=== PATIENT | female | born 1985 | race Caucasian/White ===

== ENCOUNTER 2016-08-18 12:10 | Emergency (ER) | payer OTHER ==
[2016-08-18] MEDS ORDERED: ONDANSETRON 4 MG ORAL DISINTEGRATING TAB (S0181) As Ordered ONE (13:03)
--- NOTE | 2016-08-18 13:15 | EDDOCDS ---
Nurse's Notes [facility] Name: Fermin Barnes Age: 31 yrs Sex: Female : 1985 Arrival Date: 08/18/2016 Time: 12:10 Bed Triage Treatment Room [facility] Diagnosis: Nausea and vomiting;Diarrhea, unspecified;Viral infection, unspecified Presentation: 08/18 12:12 Presenting complaint: Patient states: Was seen at [facility] for bronchitis rs3 yesterday, given fluticasone sprary, benzonatate, and benadryl. Vomiting/diarrhea since last night. Adult Sepsis Screening: The patient does not have new or worsening altered mentation. Patient's respiratory rate is less than 22. Systolic blood pressure is greater than 100. Patient has a qSOFA score of 0- Negative Sepsis Screen. Suicide/Homicide risk assessment- the patient denies having any suicidal and/or homicidal ideations and does not present with any other emotional, behavioral or mental health complaints. 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 Transition of care: patient was not received from another setting of care. 12:12 Acuity: BEV Level 4 rs3 12:12 Method Of Arrival: Walkin/Carried/Asstd rs3 Triage Assessment: 12:17 General: Appears in no apparent distress. Pain: Location: right hip. 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 fluticasone 50 mcg/actuation nasal spsn 2 times per day 2. methylprednisolone 4 mg Oral tab once daily 3. meloxicam 15 mg oral tab once daily 4. benzonatate 100 mg oral cap 1 cap 5. Benadryl 25 mg Oral cap as needed 6. albuterol sulfate 90 mcg/actuation Inhl aepb as needed - PMHx: Hip injury; - PSHx: none; - Social history: Smoking status: Patient states was never smoker of tobacco. No barriers to communication noted, The patient speaks fluent Citizen [place]. - Family history: Not pertinent. - : The pt / caregiver states he / she is not on anticoagulants. Home medication list is obtained from the patient. - Exposure Risk Screening:: None identified. Screenin:13 Screening information is obtained from the patient. Fall risk: No risks identified. ms2 Assistance ADL's: requires no assistance with activities of daily living. Abuse/DV Screen: The patient / caregiver reports he/she is: not in a situation that causes fear, pain or injury. Nutritional screening: No deficits noted. Advance Directives: Currently, there is no health care proxy. There is no active DNR order. There is no living will. There is no Power of Handle Maker. Advance directive information has not previously been placed in an [facility] medical record. Further advance directive information is declined. home support is adequate. Assessment: 13:12 General: Appears in no apparent distress, Behavior is cooperative. General: medicated ms2 for n/v. Neurological: Level of Consciousness is awake, alert, obeys commands. Respiratory: No deficits noted. Airway is patent Respiratory effort is even, unlabored, Respiratory pattern is regular, symmetrical. GI: Abdomen is flat, non- distended just vomited-medicated. Derm: Skin is pink, warm & dry. Musculoskeletal: Range of motion intact in all extremities. Vital Signs: 12:12 BP 116 / 84; Pulse 126; Resp 18 S; Temp 98.4; Pulse Ox 97% on R/A; Weight 73.48 kg (R); dd6 Height 63 in. (160.02 cm) (R); 12:12 Body Mass Index 28.70 (73.48 kg, 160.02 cm) dd6 Vitals: 12:12 Log In Time: August 18, 2016 at 12:05. dd6 ED Course: 12:11 Patient visited by Boaz Berkowitz PCA. dd6 12:11 Patient moved to Waiting dd6 12:12 [facility] is Private Physician. dd6 12:13 Patient moved to Pre RCE dd6 12:15 Triage Initiated rs3 12:45 Patient moved to Triage Treatment Room ct3 12:47 [facility] cc10 12:47 Angelito Hightower MD is Attending Physician. cc10 12:59 [facility] is Referral Physician. cc10 13:14 The patient / caregiver is instructed regarding the plan of care and ED course. ms2 13:14 No IV's were initiated during this patient's visit. No procedures done that require ms2 assistance. Administered Medications: 13:11 Drug: Ondansetron ODT 4 mg [ondansetron 4 mg disintegrating tablet (1 tabs)] Route: PO; ms2 Order Results: There are currently no results for this order. Outcome: 12:59 Discharge ordered by Provider. cc10 13:14 Discharge Assessment: patient administered narcotics - no. The following High Risk ms2 Discharge criteria are identified: None. Discharged to home ambulatory, with family. Condition: stable. Discharge instructions given to patient, Instructed on discharge instructions, follow up and referral plans. medication usage, Demonstrated understanding of instructions, medications, Pt was receptive of discharge instructions/ teaching. Prescriptions given X one faxed. No special radiology studies were completed. Property sent home with patient. 13:15 Patient left the ED. ms2 Signatures: Brad Phillip RN RN ms2 Boaz Berkowitz, WEB MARKETING COORDINATOR WEB MARKETING COORDINATOR dd6 Lara Kapadia RN RN rs3 Radha Breaux, WEB MARKETING COORDINATOR WEB MARKETING COORDINATOR ct3 Alessio Benitez, PAAniketC PAAniketC cc10 MTDD
--- NOTE | 2016-08-18 13:15 | EDDOCDS ---
Physician Documentation [facility] Name: Fermin Barnes Age: 31 yrs Sex: Female : 1985 Arrival Date: 08/18/2016 Time: 12:10 Bed Triage Treatment [facility] Disposition: 08/18/16 12:59 Discharged to Home/Self Care. Impression: Nausea and vomiting, Diarrhea, unspecified, Viral infection, unspecified. - Condition is Stable. - Discharge Instructions: Food Choices to Help Relieve Diarrhea, Adult, Viral Gastroenteritis. - Prescriptions for ZOFRAN ODT 4 mg - dissolve 1 tablet by ORAL route 4 times per day As needed do not chew, do not swallow whole; 10 tablet. - Medication Reconciliation, Local Pharmacy Hours form. - Follow up: Emergency Department; When: As needed. [facility]; When: Call to arrange an appointment; Reason: Wound/Symptom Recheck, Recheck today's complaints, Worsening of conditions, Continuance of care. - Problem is new. - Symptoms are unchanged. Historical: - Allergies: no known allergies; - Home Meds: 1. fluticasone 50 mcg/actuation nasal spsn 2 times per day 2. methylprednisolone 4 mg Oral tab once daily 3. meloxicam 15 mg oral tab once daily 4. benzonatate 100 mg oral cap 1 cap 5. Benadryl 25 mg Oral cap as needed 6. albuterol sulfate 90 mcg/actuation Inhl aepb as needed - PMHx: Hip injury; - PSHx: none; - Social history: Smoking status: Patient states was never smoker of tobacco. No barriers to communication noted, The patient speaks fluent Bruneian. - Family history: Not pertinent. - : The pt / caregiver states he / she is not on anticoagulants. Home medication list is obtained from the patient. - Exposure Risk Screening:: None identified. 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 (160.02 cm) (R); 12:12 Body Mass Index 28.70 (73.48 kg, 160.02 cm) dd6 MDM: 13:01 Ondansetron ODT Oral Disintegrating Tablet 4 mg PO once ordered. cc10 Administered Medications: 13:11 Drug: Ondansetron ODT 4 mg [ondansetron 4 mg disintegrating tablet (1 tabs)] Route: PO; ms2 Signatures: Brad Phillip RN RN ms2 Lara Kapadia RN RN rs3 Alessio Benitez, PAAniketC PAAniketC cc10 MTDD
--- NOTE | 2016-08-20 14:16 | EDDOCDS ---
Nurse's Notes [facility] [place] Name: Fermin Barnes Age: 31 yrs Sex: Female : 1985 Arrival Date: 08/18/2016 Time: 12:10 Bed Triage Treatment [facility] Diagnosis: Nausea and vomiting;Diarrhea, unspecified;Viral infection, unspecified Presentation: 08/18 12:12 Presenting complaint: Patient states: Was seen at [facility] for bronchitis rs3 yesterday, given fluticasone sprary, benzonatate, and benadryl. Vomiting/diarrhea since last night. Adult Sepsis Screening: The patient does not have new or worsening altered mentation. Patient's respiratory rate is less than 22. Systolic blood pressure is greater than 100. Patient has a qSOFA score of 0- Negative Sepsis Screen. Suicide/Homicide risk assessment- the patient denies having any suicidal and/or homicidal ideations and does not present with any other emotional, behavioral or mental health complaints. 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 Transition of care: patient was not received from another setting of care. 12:12 Acuity: BEV Level 4 rs3 12:12 Method Of Arrival: Walkin/Carried/Asstd rs3 Triage Assessment: 12:17 General: Appears in no apparent distress. Pain: Location: right hip. 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 fluticasone 50 mcg/actuation nasal spsn 2 times per day 2. methylprednisolone 4 mg Oral tab once daily 3. meloxicam 15 mg oral tab once daily 4. benzonatate 100 mg oral cap 1 cap 5. Benadryl 25 mg Oral cap as needed 6. albuterol sulfate 90 mcg/actuation Inhl aepb as needed - PMHx: Hip injury; - PSHx: none; - Social history: Smoking status: Patient states was never smoker of tobacco. No barriers to communication noted, The patient speaks fluent Panamanian. - Family history: Not pertinent. - : The pt / caregiver states he / she is not on anticoagulants. Home medication list is obtained from the patient. - Exposure Risk Screening:: None identified. Screenin:13 Screening information is obtained from the patient. Fall risk: No risks identified. ms2 Assistance ADL's: requires no assistance with activities of daily living. Abuse/DV Screen: The patient / caregiver reports he/she is: not in a situation that causes fear, pain or injury. Nutritional screening: No deficits noted. Advance Directives: Currently, there is no health care proxy. There is no active DNR order. There is no living will. There is no Power of Criminal Justice Social Worker. Advance directive information has not previously been placed in an [facility] medical record. Further advance directive information is declined. home support is adequate. Assessment: 13:12 General: Appears in no apparent distress, Behavior is cooperative. General: medicated ms2 for n/v. Neurological: Level of Consciousness is awake, alert, obeys commands. Respiratory: No deficits noted. Airway is patent Respiratory effort is even, unlabored, Respiratory pattern is regular, symmetrical. GI: Abdomen is flat, non- distended just vomited-medicated. Derm: Skin is pink, warm & dry. Musculoskeletal: Range of motion intact in all extremities. Vital Signs: 12:12 BP 116 / 84; Pulse 126; Resp 18 S; Temp 98.4; Pulse Ox 97% on R/A; Weight 73.48 kg (R); dd6 Height 63 in. (160.02 cm) (R); 12:12 Body Mass Index 28.70 (73.48 kg, 160.02 cm) dd6 Vitals: 12:12 Log In Time: August 18, 2016 at 12:05. dd6 ED Course: 12:11 Patient visited by Boaz Berkowitz PCA. dd6 12:11 Patient moved to Waiting dd6 12:12 [facility] is Private Physician. dd6 12:13 Patient moved to Pre RCE dd6 12:15 Triage Initiated rs3 12:45 Patient moved to Triage Treatment Room ct3 12:47 [facility] Benite[facility]-C [facility] cc10 12:47 Angelito Hightower MD is Attending Physician. cc10 12:59 [facility] is Referral Physician. cc10 13:14 The patient / caregiver is instructed regarding the plan of care and ED course. ms2 13:14 No IV's were initiated during this patient's visit. No procedures done that require ms2 assistance. 14:33 T-Sheet-- Draft Copy was scanned into [employer] and attached to record. 14:50 [facility] Payment Agreement was scanned into [employer] and attached to record. lg Administered Medications: 13:11 Drug: Ondansetron ODT 4 mg [ondansetron 4 mg disintegrating tablet (1 tabs)] Route: PO; ms2 Order Results: There are currently no results for this order. Outcome: 12:59 Discharge ordered by Provider. cc10 13:14 Discharge Assessment: patient administered narcotics - no. The following High Risk ms2 Discharge criteria are identified: None. Discharged to home ambulatory, with family. Condition: stable. Discharge instructions given to patient, Instructed on discharge instructions, follow up and referral plans. medication usage, Demonstrated understanding of instructions, medications, Pt was receptive of discharge instructions/ teaching. Prescriptions given X one faxed. No special radiology studies were completed. Property sent home with patient. 13:15 Patient left the ED. ms2 Signatures: Brad Phillip,RN RN ms2 Germania Jorge, Reg Reg gb Devyn Bagley, Reg Reg lg Boaz Berkowitz, CORROSION TECHNICIAN CORROSION TECHNICIAN dd6 Lara Kapadia RN RN rs3 Radha Breaux, CORROSION TECHNICIAN CORROSION TECHNICIAN ct3 Alessio Benitez, PAChio PAChio cc10 Chart Complete MTDD
--- NOTE | 2016-08-20 14:16 | EDDOCDS ---
Physician Documentation [facility] Name: Fermin Barnes Age: 31 yrs Sex: Female : 1985 Arrival Date: 08/18/2016 Time: 12:10 Bed Triage Treatment Room [facility] Disposition: 08/18/16 12:59 Discharged to Home/Self Care. Impression: Nausea and vomiting, Diarrhea, unspecified, Viral infection, unspecified. - Condition is Stable. - Discharge Instructions: Food Choices to Help Relieve Diarrhea, Adult, Viral Gastroenteritis. - Prescriptions for ZOFRAN ODT 4 mg - dissolve 1 tablet by ORAL route 4 times per day As needed do not chew, do not swallow whole; 10 tablet. - Medication Reconciliation, Local Pharmacy Hours form. - Follow up: Emergency Department; When: As needed. [facility]; When: Call to arrange an appointment; Reason: Wound/Symptom Recheck, Recheck today's complaints, Worsening of conditions, Continuance of care. - Problem is new. - Symptoms are unchanged. Historical: - Allergies: no known allergies; - Home Meds: 1. fluticasone 50 mcg/actuation nasal spsn 2 times per day 2. methylprednisolone 4 mg Oral tab once daily 3. meloxicam 15 mg oral tab once daily 4. benzonatate 100 mg oral cap 1 cap 5. Benadryl 25 mg Oral cap as needed 6. albuterol sulfate 90 mcg/actuation Inhl aepb as needed - PMHx: Hip injury; - PSHx: none; - Social history: Smoking status: Patient states was never smoker of tobacco. No barriers to communication noted, The patient speaks fluent Wallisian. - Family history: Not pertinent. - : The pt / caregiver states he / she is not on anticoagulants. Home medication list is obtained from the patient. - Exposure Risk Screening:: None identified. 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 (160.02 cm) (R); 12:12 Body Mass Index 28.70 (73.48 kg, 160.02 cm) dd6 MDM: 13:01 Ondansetron ODT Oral Disintegrating Tablet 4 mg PO once ordered. cc10 14:33 T-Sheet-- Draft Copy was scanned into [employer] and attached to record. gb 14:50 [facility] Payment Agreement was scanned into [employer] and attached to record. lg Administered Medications: 13:11 Drug: Ondansetron ODT 4 mg [ondansetron 4 mg disintegrating tablet (1 tabs)] Route: PO; ms2 Signatures: Brad Phillip,RN RN ms2 Germania Jorge, Reg Reg gb Devyn Bagley, Reg Reg lg Lara Kapadia RN RN rs3 Alessio Benitez, PAChio PAAniketC cc10 The chart was reviewed and I authenticate all verbal orders and agree with the evaluation and treatment provided.Attachments: 14:33 T-Sheet-- Draft Copy gb 14:50 [facility] Payment Agreement lg Chart Complete MTDD
--- NOTE | 2016-08-20 14:16 | EDDOCDS ---
Physician Documentation [facility] Name: Fermin Barnes Age: 31 yrs Sex: Female : 1985 Arrival Date: 08/18/2016 Time: 12:10 Bed Triage Treatment [facility] Disposition: 08/18/16 12:59 Discharged to Home/Self Care. Impression: Nausea and vomiting, Diarrhea, unspecified, Viral infection, unspecified. - Condition is Stable. - Discharge Instructions: Food Choices to Help Relieve Diarrhea, Adult, Viral Gastroenteritis. - Prescriptions for ZOFRAN ODT 4 mg - dissolve 1 tablet by ORAL route 4 times per day As needed do not chew, do not swallow whole; 10 tablet. - Medication Reconciliation, Local Pharmacy Hours form. - Follow up: Emergency Department; When: As needed. [facility]; When: Call to arrange an appointment; Reason: Wound/Symptom Recheck, Recheck today's complaints, Worsening of conditions, Continuance of care. - Problem is new. - Symptoms are unchanged. Historical: - Allergies: no known allergies; - Home Meds: 1. fluticasone 50 mcg/actuation nasal spsn 2 times per day 2. methylprednisolone 4 mg Oral tab once daily 3. meloxicam 15 mg oral tab once daily 4. benzonatate 100 mg oral cap 1 cap 5. Benadryl 25 mg Oral cap as needed 6. albuterol sulfate 90 mcg/actuation Inhl aepb as needed - PMHx: Hip injury; - PSHx: none; - Social history: Smoking status: Patient states was never smoker of tobacco. No barriers to communication noted, The patient speaks fluent [place]. - Family history: Not pertinent. - : The pt / caregiver states he / she is not on anticoagulants. Home medication list is obtained from the patient. - Exposure Risk Screening:: None identified. 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 (160.02 cm) (R); 12:12 Body Mass Index 28.70 (73.48 kg, 160.02 cm) dd6 MDM: 13:01 Ondansetron ODT Oral Disintegrating Tablet 4 mg PO once ordered. cc10 14:33 T-Sheet-- Draft Copy was scanned into [employer] and attached to record. gb 14:50 [facility] Payment Agreement was scanned into [employer] and attached to record. lg Administered Medications: 13:11 Drug: Ondansetron ODT 4 mg [ondansetron 4 mg disintegrating tablet (1 tabs)] Route: PO; ms2 Signatures: Brad Phillip,RN RN ms2 Geramnia Jorge, Reg Reg gb Devyn Bagley, Reg Reg lg Lara Kapadia RN RN rs3 Alessio Benitez, PAChio PAAniketC cc10 The chart was reviewed and I authenticate all verbal orders and agree with the evaluation and treatment provided.Attachments: 14:33 T-Sheet-- Draft Copy gb 14:50 [facility] Payment Agreement lg Chart Complete MTDD
== END 2016-08-18 13:15 | disposition home or self-care (01) ==
LOC: M ED 12:10
DX: B34.9 Viral infection, unspecified (principal); R11.2 Nausea with vomiting, unspecified; R19.7 Diarrhea, unspecified; M25.559 Pain in unspecified hip; Z79.899 Other long term (current) drug therapy; Z79.52 Long term (current) use of systemic steroids